=== PATIENT | female | born 1950 | race Caucasian/White ===

== ENCOUNTER 2016-11-16 14:17 | Inpatient (IN) | payer OTHER ==
[~2016-11-16] VITALS: Ht 160 cm; Wt 45.8 kg
[2016-11-16 20:00] VITALS: BP 143/69
[2016-11-16] MEDS ORDERED: ATEN50TA PO (20:43)
[2016-11-16] MEDS ORDERED: CEPH250C PO (20:43)
[2016-11-16] MEDS ORDERED: VALS160T2 PO (20:43)
--- NOTE | 2016-11-16 21:00 | NUR ---
PATIENT IS A 66 Y.O, FEMALE, ADMITTED AND ESCORTED BY NITISH COREA AND 1:1 THERON ARAUJO TO THE 2ND FLOOR MED-SURG AT 2100. PATENT IS HERE FOR ALCOHOL AND SUBSTANCE ABUSE. RM # 227. PATIENT VERBALIZES THAT SHE LIVES AT HER OWN HOME. SKIN CHECK DONE, NOTED POSTERIOR RIGHT UPPER THIGH LACERATION COVERED WITH STERI STRIPS. PATIENT DENIES SUICIDAL IDEATION NOR HOMICIDAL IDEATION. NO EDEMA NOTED. PATIENT IS AMBULATORY WITH STEADY GAIT. VITAL SIGNS STABLE. PATIENT IS ALERT AND ORIENTED X'S 4 WITH NO ANXIETY NOTED AT THIS TIME. NO ACUTE DISTRESS NOTED. LUNGS SOUNDS CLEAR BILATERALLY UPON AUSCULTATION. NO COUGH NOTED. BOWEL SOUNDS ARE PRESENT ON ALL QUADRANTS. PERRLA AND PUPILS ARE 2 MM UPON VISUAL CHECK. NKA. REGULAR DIET. FULL CODE. PT. 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 PER PATIENT, WITHDRAWAL SYMPTOMS ARE SWEATING , CHILLS, FLUSHED SKIN AND AGITATION. PATIENT REPORTS THAT HE RELAPSED IN 1999 AFTER BEING SOBER FOR 7 YEARS ([id number]), AND HAS BEEN USING THESE SUBSTANCE DAILY: 1.) SOMA (WILL CLARIFY WHAT DOSE) 3-5 PILLS DAILY, LAST USE WAS 10/16/2016 2.) ALCOHOL 1 BOTTLE OF WINE DAILY, LAST USE 11/15/2016 3.) METHAMPHETAMINE "A FINGER DAB DAILY", MORE HABITUAL, LAST USE 11/13/2016 PATIENT VERBALIZED THAT SHE DOES NOT TAKE OTHER SUBSTANCES BESIDES THE ONE MENTIONED ABOVE. PATIENT INFORMED PMHX OF ANXIETY, DEPRESSION, HTN, AND WITHDRAWAL-INDUCED SEIZURES. SURGICAL HX INCLUDES COLLAR BONE REPAIR, LEFT FOOT AND ANKLE REPAIR, LEFT WRIST REPAIR AND RIGHT KNEE REPAIR. NO PCP NOR PSYCH MD OF THE MOMENT. SMOKING HX INCLUDES 1/2 PACK DAILY. IS A CURRENT DAY SMOKER. ORIENTED TO ROOM AND INSTRUCTED WITH THE USE OF THE CALL LIGHT WHEN NEED OF ASSISTANCE. PLACED WITHIN REACH. SITTER AT BEDSIDE. FALL, UNIVERSAL, SEIZURE AND SAFETY PRECAUTIONS IMPLEMENTED. NO C/O PAIN AT THIS TIME . ALL NEEDS MET. INFORMATION REPLAYED TO DR. COOPER. PATIENT REFUSED PNA VACCINE AND FLU VACCINE IS OUT OF SEASON. CIWA=5. SAFETY INITIATED. WILL CONTINUE TO MONITOR.
[2016-11-16] MEDS ORDERED: THIAMINE HCL 200 MG/2 ML VIAL IM ONE (21:15)
[2016-11-16] MEDS ORDERED: MIRALAX 17 GM POWD.PACK PO PRN (21:15)
[2016-11-16] MEDS ORDERED: ACETAMINOPHEN 325 MG TABLET PO PRN (21:15)
[2016-11-16] MEDS ORDERED: ONDANSETRON ODT 4 MG TAB.RAPDIS SL PRN (21:15)
[2016-11-16] MEDS ORDERED: LORAZEPAM 1 MG TABLET PO PRN ×2 (21:15)
[2016-11-16] MEDS ORDERED: ONDANSETRON 4 MG/2 ML VIAL IM PRN (21:15)
[2016-11-16] MEDS ORDERED: MAG HYDROX/AL HYDROX/SIMETH 30 ML LIQUID UDC PO PRN (21:15)
[2016-11-16] MEDS ORDERED: LORAZEPAM 2 MG/1 ML VIAL IM PRN (21:15)
[2016-11-16] MEDS ORDERED: MAGNESIUM HYDROXIDE 30 ML LIQUID UDC PO PRN (21:15)
[2016-11-16] MEDS ORDERED: LOPERAMIDE HCL 2 MG CAPSULE PO PRN ×2 (21:15)
[2016-11-16 21:46] LABS: *AMPHETAMINE, URINE POSITIVE (NEGATIVE); *BARBITURATE, URINE NEGATIVE (NEGATIVE); *CANNABINOID, URINE NEGATIVE (NEGATIVE); *COCCAINE, URINE NEGATIVE (NEGATIVE); *OPIATE, URINE POSITIVE (NEGATIVE); *PHENCYCLIDINE SCREEN,URINE NEGATIVE (NEGATIVE)
[2016-11-16 21:51] LABS: BASOPHILS # (AUTO) 0.1 K/uL (0.0-8.0); BASOPHILS % (AUTO) 0.9 % (0.0-2.0); EOSINOPHILS # (AUTO) 0.2 K/uL (0.0-0.7); EOSINOPHILS % (AUTO) 2.4 % (0.0-7.0); HEMOGLOBIN 12.3 G/DL (12.0-16.0); LYMPHOCYTES # (AUTO) 2.3 K/UL (0.8-4.8); LYMPHOCYTES % (AUTO) 33.7 % (20.5-51.5); MEAN CORPUSCULAR HEMOGLOBIN 30.6 UUG (27.0-31.0); MEAN CORPUSCULAR HGB CONC 33 g/dL (32.0-37.0); MEAN CORPUSCULAR VOLUME 92.5 FL (81.0-99.0); MONOCYTES # (AUTO) 0.8 K/UL (0.1-1.30); MONOCYTES % (AUTO) 11.4 % (0.0-11.0); NEUTROPHILS # (AUTO) 3.4 K/UL (1.8-8.9); NEUTROPHILS % (AUTO) 51.6 % (38.5-71.5); PLATELET COUNT (AUTO) 357 K/UL (150-450); RED BLOOD CELL COUNT(AUTO) 4.01 MIL/UL (4.2-5.4); WHITE BLOOD COUNT (AUTO) 6.8 K/UL (4.0-11.2)
[2016-11-16] MEDS ORDERED: LORAZEPAM 1 MG TABLET PO ONE (22:00)
[2016-11-16 22:02] LABS: ETHANOL < 3 MG/DL (0-0)
[2016-11-16 22:05] LABS: ALANINE AMINOTRANSFERASE 46 U/L (14-59); ALKALINE PHOSPHATASE 90 U/L (50-136); AMYLASE 78 U/L (25-115); ASPARTATE AMINOTRANSFERASE 42 U/L (15-37); BILIRUBIN,TOTAL 0.4 mg/dL (0.2-1.0); CARBON DIOXIDE 33 mmol/L (21-32); CHLORIDE 107 mmol/L (98-107); CREATININE 0.8 mg/dL (0.6-1.3); GLUCOSE 86 mg/dL (74-106); LIPASE 361 U/L (73-393); POTASSIUM 3.7 mmol/L (3.5-5.1); TOTAL PROTEIN, SERUM 6.6 g/dL (6.4-8.2); UREA NITROGEN, BLOOD 14 mg/dL (7-18)
[2016-11-16] MEDS ORDERED: LORAZEPAM 1 MG TABLET ONE (22:39)
[2016-11-16] MEDS ORDERED: THIAMINE HCL 100 MG TABLET ONE (22:40)
[2016-11-16] MEDS: THIAMINE HCL 100 MG TABLET PO SCH (23:03)
[2016-11-17] VITALS: BP 153/81
[2016-11-17 04:00] VITALS: BP 153/86
--- NOTE | 2016-11-17 06:23 | NUR ---
NO CHANGES T/O SHIFT. NO ACUTE DISTRESS NOTED. PATIENT SLEPT T/O SHIFT. SITTER AT BEDSIDE. VSS. SAFETY AND COMFORT MEASURES MAINTAINED T/O SHIFT. ALL NEEDS MET.
[2016-11-17] MEDS: MULTIVITAMINS,THERAPEUTIC TABLET PO SCH (08:21)
[2016-11-17] MEDS: THIAMINE HCL 100 MG TABLET PO SCH (08:21)
[2016-11-17] MEDS: FOLIC ACID 1 MG TABLET PO SCH (08:21)
[2016-11-17] MEDS: LORAZEPAM 1 MG TABLET PO SCH ×3 (08:21→20:02)
[2016-11-17] MEDS ORDERED: TUBERCULIN,PURIF.PROT.DERIV. 5 TU/0.1 ML TEST ID ONE (09:00)
--- NOTE | 2016-11-17 10:40 | NUR ---
Patient transferred to [facility]. Patient BP elevated. BP meds to be given on 3rd floor. Pharmacy brought all meds upstairs prior to patient leaving floor. RN notified of vitals assessment and necessity for meds. Patient alert and oriented times four. Escorted by [facility] sitter.
--- NOTE | 2016-11-17 10:50 | NUR ---
Received patient from 2nd floor, received report from Sarina COREA that patient has not received his PPD skin test, antibiotic and BP meds. Received call from pharmacy that the [facility]. Received patient in her room, denies any shortness of breath, chest pain, nausea, vomiting at this time. Patient currently in group therapy. Will administer meds when they arrive.
[2016-11-17 12:00] VITALS: BP 167/92
[2016-11-17] MEDS: CEPHALEXIN 250 MG PO SCH ×2 (12:20→20:01)
[2016-11-17] MEDS: VALSARTAN 160 MG PO SCH (12:29)
[2016-11-17] MEDS ORDERED: hydrALAZINE HCL 50 MG TABLET PO PRN (15:45)
[2016-11-17 16:00] VITALS: BP 168/92
--- NOTE | 2016-11-17 17:18 | NUR ---
PRN HYDRALAZINE Patient's BP 168/92, HR 71. PRN hydralazine given, will continue to monitor patient.
--- NOTE | 2016-11-17 18:18 | NUR ---
REASSESSMENT PRN HYDRALAZINE Patient's BP 152/94, HR 84. Patient denies any dizziness at this time.
--- NOTE | 2016-11-17 18:45 | NUR ---
END OF SHIFT Patient is 66 year old female admitted for medically supervised withdrawal from alcohol. Patient is full code with NKA Patient is full code with NKA. Patient on 5 day Ativan taper. Most recent CIWA: 3. Patient reports anxiety and tremors. PRN Hydralazine for elevated BP 168/92, HR 71, recheck BP 152/94, HR 84. PPD skin test performed on RFA, to be read 11/19/16. Patient has laceration on R thigh, covered with steri strips, no drainage or bleeding noted. Compliant with routine meds during this shift. Patient tolerating meals without n/v. palliative nursepower switchboard operator will continue to monitor patient.
--- NOTE | 2016-11-17 18:45 | NUR ---
START OF SHIFT NOTE: Patient endorsed by day shift nurse. Report received. Patient is a 66 year old female admitted to [facility] on 11/16/2016 for medically supervised withdrawal from Benzodiazepines, Alcohol, and Methamphetamine, continue 5 Day Ativan Taper with tolerated well without ASE. Patient remains compliant with treatment, medications, and diet regime. Patient reports NKA. Patient placed on Full Code, Regular Diet, Fall and Seizures Precautions. Patient denies Seizures History. Past Medical History: Anxiety disorder, HTN, Alcohol dependence, Substances dependence, Chronic tobacco use,. Upon endorsement, patient is alert and oriented x4. Speech is clear and soft. Patient is cooperative, friendly, and verbally appropriate. Patient denies SI/HI. VS: T: 98.6; BP: 159/95; HR: 83; RR:19; O2 SAT: 100%. Patient denies any pain now : "0/10". CIWA 7. Patient presented with anxiety, agitation, nervousness, tremors, diaphoresis, restless legs, and fatigue. Respirations unlabored and even. Patient denies SOB and chest pain now. Lungs Sounds are clear bilaterally. Bowel Sounds active in all x4 quadrants. Abdomen is soft and non-tender. PERRLA, brisk capillary refill, assistant vice president equal and strong. Skin is warm and dry to touch. Patient's Right thigh laceration with Steril Strips in place. No open wounds noted. No bleeding, or drainage noted. Patient is on Picture placed in the chart. Encourage fluids as tolerated. Encourage to attend activities groups. All needs met. Safety measures on place. Call light within reach, bed in lowest position and locked, padded rails up bilaterally. Will continue to monitor closely.
[2016-11-17 20:00] VITALS: BP 159/95
[2016-11-17] MEDS: diphenhydrAMINE 50 MG CAPSULE PO PRN (20:11)
--- NOTE | 2016-11-17 20:11 | NUR ---
PRN BENADRYL 50 MG 1 CAP PO ADMINISTRATION Patient c/o insomnia. PRN Benadryl 50 mg 1 capsule PO administrated with full glass of water as ordered. Patient tolerated well. All needs met. Safety measures on place. Call light within reach, bed in lowest position and locked, padded rails up bilaterally rails up bilaterally. Will continue to monitor closely.
[2016-11-17] MEDS ORDERED: AMLODIPINE 5 MG TABLET PO ONE (21:00)
--- NOTE | 2016-11-17 21:11 | NUR ---
RE-ASSESSMENT Patient is sleeping. Respirations even and unlabored. RR:14. PRN Benadryl 50 mg 1 capsule PO for insomnia was effective. All needs met. Safety measures on place. Call light within reach, bed in lowest position and locked, padded rails up bilaterally rails up bilaterally. Will continue to monitor closely.
--- NOTE | 2016-11-17 23:24 | NUR ---
PATIENT REFUSED DVT PUMP. Charge nurse notified that patient refused DVT Pump.
[2016-11-17] MEDS ORDERED: TRAZODONE 50 MG TABLET PO ONE (23:30)
--- NOTE | 2016-11-17 23:41 | NUR ---
PRN TRAZODONE 50 MG 1 TAB PO ADMINISTRATION Patient c/o insomnia. PRN Trazodone 50 mg 1 tab PO administrated with full glass of water as ordered. Patient tolerated well. All needs met. Safety measures on place. Call light within reach, bed in lowest position and locked, padded rails up bilaterally rails up bilaterally. Will continue to monitor closely.
[2016-11-17] MEDS: CLONIDINE HCL 0.1 MG TABLET PO PRN (23:42)
--- NOTE | 2016-11-17 23:42 | NUR ---
PRN CATAPRES 0.1 MG 1 TAB PO ADMINISTRATION PRN Clonidine 0.1 mg 1 tab PO for BP 165/95 administrated with full glass of water as ordered. Patient tolerated well. All needs met. Safety measures on place. Call light within reach, bed in lowest position and locked, padded rails up bilaterally rails up bilaterally. Will continue to monitor closely.
[2016-11-17] MEDS ORDERED: TRAZODONE 50 MG TABLET ONE (23:46)
[2016-11-18] VITALS (7 sets, daily range): BP systolic 119–162; BP diastolic 65–95
--- NOTE | 2016-11-18 00:42 | NUR ---
RE-ASSESSMENT Patient is sleeping. Respirations even and unlabored. BP 149/74; RR:16. PRN Clonidine PO and PRN Trazodone PO were effective. All needs met. Safety measures on place. Call light within reach, bed in lowest position and locked, padded rails up bilaterally rails up bilaterally. Will continue to monitor closely.
--- NOTE | 2016-11-18 06:53 | NUR ---
END OF SHIFT NOTE: Patient endorsed to day shift nurse. Report given. Patient is a 66 year old female admitted to [facility] on 11/16/2016 for medically supervised withdrawal from Benzodiazepines, Alcohol, and Methamphetamine, continue 5 Day Ativan Taper with tolerated well without ASE. Patient remains compliant with treatment, medications, and diet regime. Patient reports NKA. Patient placed on Full Code, Regular Diet, Fall and Seizures Precautions. Past Medical History: Anxiety disorder, HTN, Alcohol dependence, Substances dependence, Chronic tobacco use,. Patient denies SI/HI. VS at 0400: T: 98.2; BP: 134/89; HR: 75; RR:16; O2 SAT: 100%. Patient denies any pain now : "0/10". CIWA 4 at 0400. Respirations unlabored and even. Patient denies SOB and chest pain now. Skin is warm and dry to touch. Patient's Right thigh laceration with Sterile Strips in place. No open wounds noted. No bleeding, or drainage noted. Patient refused DVT Pump. Encourage fluids as tolerated. Encourage to attend activities groups. PRN Benadryl PO, PRN Clonidine PO, and PRN Trazodone PO administrated to patient last shift supervisor melting were effective. Patient slept 5 hours 30 minutes, intake: 500 ml, voided x3. All needs met. Safety measures on place. Call light within reach, bed in lowest position and locked, padded rails up bilaterally.
--- NOTE | 2016-11-18 07:30 | NUR ---
Start of shift note; Received report from night nurse. Patient is a 66 year old female admitted on 11/16/16 for ETOH/ Benzo dependence. Patient reported history of anxiety, hypertension, insomnia. NKA, full code status on regular diet. Patient was placed on 5 day Ativan taper. Patient slept for 5 hours. Patient's last CIWA is 4 at 0400. Patient received PRN Clonidine , Benadryl and trazodone all noted to be effective per night nurse. All safety measures secured. Will continue to monitor patient.
[2016-11-18 08:08] LABS: HEPATITIS B SURFACE AG Negative (Negative)
[2016-11-18] MEDS: MULTIVITAMINS,THERAPEUTIC TABLET PO SCH (09:17)
[2016-11-18] MEDS: FOLIC ACID 1 MG TABLET PO SCH (09:17)
[2016-11-18] MEDS: VALSARTAN 160 MG PO SCH (09:17)
[2016-11-18] MEDS: CEPHALEXIN 250 MG PO SCH ×2 (09:17→21:21)
[2016-11-18] MEDS: AMLODIPINE 5 MG TABLET PO SCH (09:17)
[2016-11-18] MEDS: THIAMINE HCL 100 MG TABLET PO SCH (09:18)
[2016-11-18] MEDS: LORAZEPAM 1 MG TABLET PO SCH ×4 (09:18→21:20)
--- NOTE | 2016-11-18 13:06 | NUR ---
WOUND CARE CONSULT: PT PRESENTS WITH RT POSTERIOR THIGH LACERATION WHICH HAS SOME OPEN AREAS WITH NECROTIC TISSUE. RECOMMEND SURGICAL CONSULT. DR LU MARIA CONSULTED BY DR COOPER. WILL SEE PRN. ADAMSON IN AGREEMENT WITH PLAN OF CARE. Addendum: 11/18/16 at 1307 by SAMANTHA DUPREE RN Amended: Links added.
--- NOTE | 2016-11-18 16:08 | NUR ---
Wound assessment; Patient was seen and assessed by wound nurse systems development consultant. Old laceration noted on right posterior thigh measures 4cm x 3cm with 0.2cm in depth, small necrotic tissue noted. Site was noted upon admission. Dr. Dee made aware and ordered to have surgical consult with Dr. Hendrix. Site kept clean and dry, patient denies pain. Educated patient to keep site clean and dry to prevent infection, patient verbalized understanding. Will continue to monitor patient. Addendum: 11/18/16 at 1612 by KAREN SANCHEZ LVN Steri strips in place.
--- NOTE | 2016-11-18 18:15 | NUR ---
End of shift notes; Patient is AOx4. Patient is a 66 year old female admitted on 11/16/16 for ETOH/ Benzo dependence. Patient reported history of anxiety, hypertension, insomnia. NKA, full code status on regular diet. Patient was placed on 5 day Ativan taper, no adverse reactions noted. Patient remained compliant with treatment plan. Medications were effective in reducing withdrawal symptoms. Met all needs.
--- NOTE | 2016-11-18 19:15 | NUR ---
START OF SHIFT Received 66 year old female patient admitted on 11/16/16 for ETOH, Benzodiazepine and Meth dependency. Pt is full code with NKA. She reports a PMHx of anxiety, HTN, and insomnia. She reports drinking ETOH 750-1500mL daily. Last dose was on 11/15/16. Alprazolam intermittently 6-8 mg. Last dose was 1 week prior to admission. And methamphetamine 0.25 g x1 day. Last dose was 11/13/16. Pt placed on 5 day Ativan taper started on 11/16/16 and tolerating well. Per endorsement, pt noted with right posterior thigh laceration, covered with steri-strips. Pt is alert and oriented x4, breathing is even and unlabored. Safety measures in place. Will monitor.
--- NOTE | 2016-11-18 19:30 | NUR ---
MD Communication: REGISTER IN CHANCERY for Dr Hendrix on unit to assess wound to pt's right posterior thigh. Order received for wound treatment: cleanse with NS, pat dry, apply hydrogel, and cover with dry dressing. Debridement scheduled for tomorrow.
[2016-11-18] MEDS: CLONIDINE HCL 0.1 MG TABLET PO PRN (21:20)
[2016-11-18] MEDS: diphenhydrAMINE 50 MG CAPSULE PO PRN (21:20)
--- NOTE | 2016-11-18 21:20 | NUR ---
PRN BENADRYL/CLONIDINE Pt reports inability to sleep. And pt noted with increased BP 142/91. PRN Benadryl and Clonidine administered as ordered. Safety measures in place. Will monitor effectiveness.
--- NOTE | 2016-11-18 22:20 | NUR ---
PRN BENADRYL/CLONIDINE REASSESSMENT PRN medications effective. BP reassessed, decreased to 138/85. Pt lying in bed with eyes closed noted to be asleep. Breathing even and unlabored. Safety measures in place. Will monitor.
[2016-11-19] VITALS: BP 140/89
[2016-11-19 04:00] VITALS: BP 135/85
--- NOTE | 2016-11-19 07:18 | NUR ---
END OF SHIFT Pt is a 66 year old female patient admitted on 11/16/16 for ETOH, Benzodiazepine and Meth dependency. Pt is full code with NKA. She reports a PMHx of anxiety, HTN, and insomnia. Pt continues on 5 day Ativan taper started on 11/16/16 and tolerating well. Pt is scheduled to have excisional debridement to right posterior thigh today. She received PRN Benadryl and clonidine. She slept a total of 8 hrs, Intake: 500mL, Void: x1, BM:0, CIWA:5. Pt remains alert and oriented x4, breathing is even and unlabored. Safety measures in place. Endorsed to oncoming shift.
[2016-11-19 08:00] VITALS: BP 135/93
--- NOTE | 2016-11-19 08:05 | NUR ---
START OF SHIFT NOTE Received pt Aox4. Patient states she feels better "good." She presents with flat affect. She is on 5 day Ativan taper. PRN Clonidine and Benadryl given per warehouse distribution manager. She slept 8 hours. Pt noted to ahve right posterior open laceration to right thigh with dressing applied. Patient scheduled for I&D. CIWA 4 at 0800 this morning. Encouraged increase in fluid intake to facilitate detox. Encouraged pt to attend groups and activities. Encouraged pt to notify RN if S/S of W/D worsen. All needs met. Will monitor closely and offer help frequently.
[2016-11-19] MEDS: MULTIVITAMINS,THERAPEUTIC TABLET PO SCH (08:31)
[2016-11-19] MEDS: LORAZEPAM 1 MG TABLET PO SCH ×3 (08:31→20:19)
[2016-11-19] MEDS: FOLIC ACID 1 MG TABLET PO SCH (08:31)
[2016-11-19] MEDS: AMLODIPINE 5 MG TABLET PO SCH (08:31)
[2016-11-19] MEDS: VALSARTAN 160 MG PO SCH (08:32)
[2016-11-19] MEDS: THIAMINE HCL 100 MG TABLET PO SCH (08:32)
[2016-11-19] MEDS: CEPHALEXIN 250 MG PO SCH ×2 (08:32→20:20)
[2016-11-19 12:00] VITALS: BP 117/79
[2016-11-19 16:00] VITALS: BP 149/84
--- NOTE | 2016-11-19 18:28 | NUR ---
END OF SHIFT NOTE Patient continued on 5 day Ativan and tolerating well. No PRNS given during shift mechanic as detox meds are effective. Patient had uneventful shift. Last CIWA 5. Patient still presents with right posterior thigh laceration with dressing in place. Patient denies S/I or H/I. Patient attended groups and activities. All needs met. All safety measures in place. Vital signs stable. Will endorse to night nurse.
--- NOTE | 2016-11-19 19:15 | NUR ---
START OF SHIFT Received 66 year old female patient admitted on 11/16/16 for ETOH, Benzodiazepine and Meth dependency. Pt is full code with NKA. She reports a PMHx of anxiety, HTN, and insomnia. She reports drinking ETOH 750-1500mL daily. Last dose was on 11/15/16. Alprazolam intermittently 6-8 mg. Last dose was 1 week prior to admission. And methamphetamine 0.25 g x1 day. Last dose was 11/13/16. Pt placed on 5 day Ativan taper started on 11/16/16 and tolerating well. Per endorsement, pt scheduled to have excisional debridement of right posterior thigh today. She did not receive or request PRN medications. Pt is alert and oriented x4, breathing is even and unlabored. Safety measures in place. Will monitor.
--- NOTE | 2016-11-19 19:45 | NUR ---
NURSING NOTE CVT RN of Dr. Hendrix performed excisional debridement of right posterior thigh. Pt tolerated well. Wound was packed with gauze and covered with dry dressing. Education regarding wound care was provided to pt by CVT RN. Pt verbalized understanding.
[2016-11-19 20:00] VITALS: BP 124/85
[2016-11-19] MEDS: IBUPROFEN 400 MG TABLET PO PRN (20:20)
[2016-11-19] MEDS: TRAZODONE 50 MG TABLET PO PRN (21:12)
--- NOTE | 2016-11-19 21:12 | NUR ---
PRN TRAZODONE Received new order for PRN Trazodone for sleep. PRN medication administered as ordered. Will monitor effectiveness.
[2016-11-19] MEDS ORDERED: TRAZODONE 50 MG TABLET ONE (21:22)
--- NOTE | 2016-11-19 22:12 | NUR ---
PRN TRAZODONE REASSESSMENT PRN medication effective. Pt lying in bed with eyes closed noted to be asleep. Respirations 16, breathing even and unlabored. Safety measures in place. Will monitor.
[2016-11-20] VITALS: BP 115/76
--- NOTE | 2016-11-20 | NUR ---
CIWA DEFERRED CIWA deferred d/t pt lying in bed with eyes closed noted to be asleep. Respirations 16, safety measures in place. Will monitor.
[2016-11-20 04:00] VITALS: BP 126/83
--- NOTE | 2016-11-20 04:00 | NUR ---
CIWA DEFERRED 0400 CIWA deferred d/t pt lying in bed with eyes closed noted to be asleep. Respirations 16, safety measures in place. Will continue to monitor.
--- NOTE | 2016-11-20 07:05 | NUR ---
END OF SHIFT Pt is a 66 year old female patient admitted on 11/16/16 for ETOH, Benzodiazepine and Meth dependency. Pt is full code with NKA. She reports a PMHx of anxiety, HTN, and insomnia. Pt continues on 5 day Ativan taper started on 11/16/16 and tolerating well. Pt received an excisional debridement by ORACLE APPLICATION ARCHITECT. Pt tolerated well. Wound was packed with gauze and covered with dry dressing. She received new order for Trazodone. She slept a total of 9 hrs, Intake: 450 mL, Void: x1, BM: 0, CIWA:5. Pt remains alert and oriented x4, breathing is even and unlabored. Safety measures in place. Endorsed to oncoming shift.
--- NOTE | 2016-11-20 07:30 | NUR ---
Start of shift note; Received report from night nurse. Patient is a 66 year old female admitted on 11/16/16 for ETOH/ Benzo dependence. Patient reported history of anxiety, hypertension, insomnia. NKA, full code status on regular diet. Patient was placed on 5 day Ativan taper. Patient slept for 9 hours. Patient's last CIWA is 5 at 0400. Patient received PRN trazodone noted to be effective per night nurse. All safety measures secured. Will continue to monitor patient.
[2016-11-20 08:00] VITALS: BP 120/83
[2016-11-20] MEDS: VALSARTAN 160 MG PO SCH (09:00)
[2016-11-20] MEDS: AMLODIPINE 10 MG TABLET PO SCH (09:00)
[2016-11-20] MEDS: CEPHALEXIN 250 MG PO SCH ×2 (09:00→20:46)
[2016-11-20] MEDS: THIAMINE HCL 100 MG TABLET PO SCH (09:00)
[2016-11-20] MEDS: FOLIC ACID 1 MG TABLET PO SCH (09:00)
[2016-11-20] MEDS: LORAZEPAM 1 MG TABLET PO SCH ×2 (09:00→20:46)
[2016-11-20] MEDS: MULTIVITAMINS,THERAPEUTIC TABLET PO SCH (09:00)
[2016-11-20] MEDS ORDERED: AMLODIPINE 5 MG TABLET PO SCH (09:00)
[2016-11-20 12:00] VITALS: BP 134/81
[2016-11-20 16:00] VITALS: BP 112/82
--- NOTE | 2016-11-20 18:13 | NUR ---
End of shift notes; Patient is AOx4. Patient is a 66 year old female admitted on 11/16/16 for ETOH/ Benzo dependence. Patient reported history of anxiety, hypertension, insomnia. NKA, full code status on regular diet. Patient was placed on 5 day Ativan taper, no adverse reactions noted. Patient remained compliant with treatment plan. Medications were effective in reducing withdrawal symptoms. Wound on right posterior thigh site kept clean and dry, treatment done as ordered. Met all needs.
[2016-11-20 20:00] VITALS: BP 133/88
--- NOTE | 2016-11-20 20:00 | NUR ---
Start of shift note Received a 66 year old female admitted on 11/16/16 for ETOH/ Benzo dependence. Has PMHx of anxiety, hypertension, insomnia. NKA, full code status on regular diet. Patient is on 5 day Ativan taper. Px complained of Thigh pain 06/20 and requested pill for sleeping. VS stable. All safety measures secured. Will continue to monitor patient.
[2016-11-20] MEDS: TRAZODONE 50 MG TABLET PO PRN (20:46)
--- NOTE | 2016-11-20 20:46 | NUR ---
PRN Desyrel and Motrin Px complained of Right thigh pain of 4/10 and asked for medication for sleeping. Desyrel 50mg a tab given PO as PRN and Motrin 400mg 1 tab given PO as PRN med.
[2016-11-20] MEDS: IBUPROFEN 400 MG TABLET PO PRN (20:47)
--- NOTE | 2016-11-20 21:46 | NUR ---
PRN meds reevaluation Re evaluation done after an hour of PRN meds administration. Pain on right thigh decreased to 2/10. px is still awake but drowsy.
[2016-11-20] MEDS: HYDROXYZINE PAMOATE 25 MG CAPSULE PO PRN (22:56)
--- NOTE | 2016-11-20 22:56 | NUR ---
PRN Vistaril Px requested for another pill to help her to sleep. Vistaril 25mg 1 tab given PO as PRN med.
[2016-11-20] MEDS ORDERED: HYDROXYZINE PAMOATE 25 MG CAPSULE ONE (23:05)
--- NOTE | 2016-11-21 | NUR ---
CIWA was deferred due to the px is sleeping, to assess if the px is awake per doctor's order.
--- NOTE | 2016-11-21 07:17 | NUR ---
End of Shift Note Px is a 66 year old female admitted for ETOH/ Benzo dependence. Has PMHx of anxiety, hypertension, insomnia. NKA, full code status on regular diet. Patient is on 5 day Ativan taper. Px complained of Thigh pain 4/10 and requested pill for sleeping. Desyrel 50mg 1 tab, Motrin 400mg 1 tab, and Vistaryl 25mg 1 cap given PO as PRN meds. Meds were effective. Oral intake of 600ml voided 1x, No BM. Slept for 7hrs. VS stable. All safety measures secured. Will continue to monitor
--- NOTE | 2016-11-21 07:30 | NUR ---
Start of shift note; Received report from night nurse. Patient is a 66 year old female admitted on 11/16/16 for ETOH/ Benzo dependence. Patient reported history of anxiety, hypertension, insomnia. NKA, full code status on regular diet. Patient was placed on 5 day Ativan taper. Patient slept for 9 hours. Patient's last CIWA is 2 at 0400. Patient received PRN trazodone, Motrin, Vistaril noted to be effective per night nurse. All safety measures secured. Will continue to monitor patient.
[2016-11-21 08:00] VITALS: BP 136/85
[2016-11-21] MEDS: MULTIVITAMINS,THERAPEUTIC TABLET PO SCH (08:26)
[2016-11-21] MEDS: FOLIC ACID 1 MG TABLET PO SCH (08:26)
[2016-11-21] MEDS: VALSARTAN 160 MG PO SCH (08:26)
[2016-11-21] MEDS: CEPHALEXIN 250 MG PO SCH ×2 (08:26→20:43)
[2016-11-21] MEDS: THIAMINE HCL 100 MG TABLET PO SCH (08:26)
[2016-11-21] MEDS: AMLODIPINE 10 MG TABLET PO SCH (08:27)
--- NOTE | 2016-11-21 10:20 | NUR ---
MD communication; Dr. Toney notified of patient's wound culture results, patient to be re-evaluated today per MD. No new orders at this time.
--- NOTE | 2016-11-21 10:46 | NUR ---
Nurse note; Wound treatment done as per ordered, site kept clean and dry.
--- NOTE | 2016-11-21 11:12 | NUR ---
Endorsement report; Detailed report given to covering nurse. Dr. Dee made aware of wound culture result, no new orders noted. All safety measures secured. Met all needs.
--- NOTE | 2016-11-21 11:26 | NUR ---
ENDORSEMENT RECEIVED. WILL PRESUME CARE.
[2016-11-21 12:00] VITALS: BP 121/78
[2016-11-21] MEDS: CLINDAMYCIN HCL 300 MG CAPSULE PO SCH ×2 (14:35→20:44)
[2016-11-21] MEDS ORDERED: AMLO10TA2 PO (14:57)
[2016-11-21] MEDS ORDERED: HYDR-3895 PO (14:57)
[2016-11-21] MEDS ORDERED: TRAZ-144 PO (14:57)
[2016-11-21] MEDS ORDERED: IBUP-1953 PO (14:57)
[2016-11-21] MEDS ORDERED: LACT1CAP57 PO (14:57)
[2016-11-21] MEDS ORDERED: CLIN300C3 PO (14:57)
[2016-11-21] MEDS ORDERED: GABA-534 PO (14:57)
[2016-11-21 16:00] VITALS: BP 117/74
--- NOTE | 2016-11-21 18:40 | NUR ---
END OF SHIFT NOTE Patient completed 5 day Ativan and tolerating well. No PRNS given during rn night. . Last CIWA 2. Patient still presents with right posterior thigh laceration with dressing in place. Patient denies S/I or H/I. Patient attended groups and activities. All needs met. All safety measures in place. Vital signs stable. Will endorse to night nurse.
[2016-11-21 20:00] VITALS: BP 117/78
--- NOTE | 2016-11-21 20:00 | NUR ---
Start of shift note Received px a 66 year old female admitted on 11/16/2016 for ETOH/ Benzo dependence. Patient reported history of anxiety, hypertension, insomnia. NKA, full code status ,on regular diet. Patient finished the 5 day Ativan taper. Patient's last CIWA is 2 @ 2000H. For D/C tomorrow 11/22/2016. Please include the wound dressing instructions in D/C paper. All safety measures secured. Will continue to monitor.
[2016-11-21] MEDS: GABAPENTIN 300 MG CAPSULE PO SCH (20:43)
[2016-11-21] MEDS: HYDROXYZINE PAMOATE 25 MG CAPSULE PO PRN (20:43)
--- NOTE | 2016-11-21 20:43 | NUR ---
PRN Vistaril Px requested for sleeping. Vistaril 25mg 1 tab given PO as PRN med. VS stable. Will continue to monitor.
[2016-11-21] MEDS: LACTOBACILLUS RHAMNOSUS GG 1 EACH CAPSULE PO SCH (20:44)
--- NOTE | 2016-11-21 22:00 | NUR ---
VS refusal Px verbalized the refusal of taking VS at 12MN and 4AM due to that the px wanted not to be bothered while she sleeps. VS are stable. Breathing is even and unlabored. Will continue to monitor.
--- NOTE | 2016-11-22 04:00 | NUR ---
CIWA deferred CIWA was deferred due to the px is sleeping. To assess while the px is awake per doctor's order. Respirations are even and unlabored. Will continue to monitor.
--- NOTE | 2016-11-22 07:10 | NUR ---
318 End of shift note Px is a 66 year old female admitted on 11/16/2016 for ETOH/ Benzo dependence. NKA, full code status, on regular diet. Px completed 5 day Ativan taper.During shift, no complaints but requested for sleeping pill. Vistaril 25mg 1 tab given PO as PRN med at 2043H. For D/C tomorrow 11/22/2016. Please include the wound dressing instructions in D/C paper. Wound photographed attached in the pxs file. Slept 6hrs, oral intake of 1 L, voided 1x, no BM. All safety measures secured. Will continue to monitor.
--- NOTE | 2016-11-22 07:30 | NUR ---
Start of shift note; Received report from night nurse. Patient is a 66 year old female admitted on 11/16/16 for ETOH/ Benzo dependence. Patient reported history of anxiety, hypertension, insomnia. NKA, full code status on regular diet. Patient was placed on 5 day Ativan taper. Patient slept for 8 hours. Patient's last CIWA is 2 at 0400. Patient is medically cleared for discharge today. All safety measures secured. Will continue to monitor patient.
[2016-11-22 08:00] VITALS: BP 137/91
[2016-11-22] MEDS: VALSARTAN 160 MG PO SCH (08:00)
[2016-11-22 08:01] VITALS: BP 137/91
[2016-11-22] MEDS: THIAMINE HCL 100 MG TABLET PO SCH (08:01)
[2016-11-22] MEDS: GABAPENTIN 300 MG CAPSULE PO SCH (08:01)
[2016-11-22] MEDS: CLINDAMYCIN HCL 300 MG CAPSULE PO SCH (08:01)
[2016-11-22] MEDS: LACTOBACILLUS RHAMNOSUS GG 1 EACH CAPSULE PO SCH (08:01)
[2016-11-22] MEDS: MULTIVITAMINS,THERAPEUTIC TABLET PO SCH (08:01)
[2016-11-22] MEDS: AMLODIPINE 10 MG TABLET PO SCH (08:01)
[2016-11-22] MEDS: FOLIC ACID 1 MG TABLET PO SCH (08:01)
--- NOTE | 2016-11-22 09:33 | NUR ---
Discharge note; Patient completed treatment without any adverse reactions. Patient is medically cleared for discharge. All valuables, belongings, prescriptions given to patient. Patient left the hospital at exactly 0933 on 11/22/16. patient left in a stable condition. Met all needs.
== END 2016-11-22 09:33 | disposition other institution (70) | DRG 982 ==
LOC: MED 18:20 → SRC 11-17 09:55
PROVIDERS: ADMIT Internal Medicine; ATTEND Internal Medicine
PROC: HZ2ZZZZ Detoxification Services for Substance Abuse Treatment (ICD-10-PCS; principal; 2016-11-16)
PROC: HZ41ZZZ Group Counseling for Substance Abuse Treatment, Behavioral (ICD-10-PCS; 2016-11-17)
PROC: 0JBL0ZZ Excision of Right Upper Leg Subcutaneous Tissue and Fascia, Open Approach (ICD-10-PCS; 2016-11-19)
DX: F10.230 Alcohol dependence with withdrawal, uncomplicated (principal); E87.3 Alkalosis; K70.10 Alcoholic hepatitis without ascites; S71.111A Laceration without foreign body, right thigh, initial encounter; I10 Essential (primary) hypertension; F11.10 Opioid abuse, uncomplicated; Y90.0 Blood alcohol level of less than 20 mg/100 ml; Z82.0 Family history of epilepsy and other diseases of the nervous system; Z81.1 Family history of alcohol abuse and dependence; Z79.899 Other long term (current) drug therapy; L08.9 Local infection of the skin and subcutaneous tissue, unspecified; W19.XXXA Unspecified fall, initial encounter; Y92.89 Other specified places as the place of occurrence of the external cause; E86.0 Dehydration; F41.9 Anxiety disorder, unspecified; F17.210 Nicotine dependence, cigarettes, uncomplicated; F15.23 Other stimulant dependence with withdrawal; F13.10 Sedative, hypnotic or anxiolytic abuse, uncomplicated; Z20.5 Contact with and (suspected) exposure to viral hepatitis
CPT/HCPCS: 36415; 70030-TC; 80307; 80324; 80361; 83690; 83735; 85025; 86580; 86592; 86705; 86803; 87070; 87077; 87340; 87806; A4663; G0480; J3411; Q0163